=== PATIENT | female | born 1970 | race Caucasian/White ===

== ENCOUNTER → 2017-06-29 | Outpatient (CLI) | payer BC ==
[2017-06-29 11:27] LABS: BUN 12 mg/dL (7-18)
[2017-06-29 11:29] LABS: GFR (ESTIMATED) 78 ML/MIN (59-)
[2017-06-29 12:06] LABS: HEMOGLOBIN 14.5 g/dL (12.2-16.2); LYMPH # 2.1 K/mm3 (0.7-4.5); LYMPH % 25.3 % (10-50.0)
== END ==
LOC: LAB 09:33
PROVIDERS: Internal Medicine
DX: C50.912 Malignant neoplasm of unspecified site of left female breast (principal); I89.0 Lymphedema, not elsewhere classified

== ENCOUNTER → 2017-08-13 | Outpatient (CLI) | payer BC ==
[~2017-08-13] MED LIST: ALLERGY10 MG PO; ARIMIDEX1 MG PO; ATENOLOL25 MG PO; BACTRIM DS 8001 TAB PO; BIOTIN1 TAB PO; BUSPIRONE 5MG TA5 MG PO; CALCIUM 600600 M2 PO; CEPHALEXIN500 MG PO; CYCLOBENZAPRINE10 M3 PO; FISH OIL1000 MG PO; FLEXERIL10 MG PO; HYDROCODONE1 TABLET PO; HYDROXYZINE 25M25 MG PO; LAMISIL 250MG250 MG PO; MEDROL 4MG. DOSE4 MG PO; MELOXICAM15 MG PO; NAPROSYN 500MG500 MG PO; NEURONTIN100 MG OR; PRAVASTATIN40 MG PO; PREDNISONE 10MG10 MG PO; SUMATRIPTAN SUC25 MG PO; TRAMADOL 50MG T50 M1 PO; VICODIN 5/500 T1 TAB PO; VOLTAREN75 MG PO; WOMEN'S MULTIVI1 TAB PO; XIIDRA1 EACH OP
[2017-08-13 11:26] LABS: HEMOGLOBIN 13.7 g/dL (12.2-16.2); LYMPH # 1.8 K/mm3 (0.7-4.5); LYMPH % 24.2 % (10-50.0)
[2017-08-13 12:45] LABS: URINE BILIRUBIN - DIPSTICK NEGATIVE (NEG); URINE BLOOD NEGATIVE (NEG)
[2017-08-13 17:59] LABS: BUN 14 mg/dL (7-18)
[2017-08-13 18:40] LABS: GFR (ESTIMATED) 90 ML/MIN (59-)
== END ==
LOC: LAB 10:55
PROVIDERS: Obstetrics & Gynecology
DX: N95.0 Postmenopausal bleeding (principal); Z01.812 Encounter for preprocedural laboratory examination

== ENCOUNTER 2017-08-17 06:09 | Day surgery (SDC) | payer BC ==
[~2017-08-17] VITALS: Ht 165.1 cm; Wt 132.9 kg
--- NOTE | 2017-08-17 07:46 | Operative Note ---
Procedure/Operative Record Date of Procedure: 08/17/17 Referring physician: Dr. Denise Pre-op diagnosis: Postmenopausal bleeding Post-op diagnosis: 1. Postmenopausal bleeding. 2. Endometrial polyps. Procedure performed: 1. Diagnostic hysteroscopy. 2. Endometrial polypectomy. 3. Fractional dilatation and curettage. Surgeon: Anand Lowery Anesthesia: SHADE Houser Indications: Postmenopausal bleeding Description of procedure: After the patient was prepped and draped in usual fashion and general anesthesia was administered, examination under anesthesia revealed a symmetrically enlarged uterus, with no palpable adnexal masses. A weighted speculum was placed within the posterior fourchette of the vagina, and the anterior lip of the cervix was grasped with a single-tooth tenaculum. There was only moderate descensus. A sharp curette was introduced into the endocervix, with retrieval of a small amount of mucoid tissue. The uterus was then sounded in an anteverted direction to 9 cm, and easily dilated to number 20 Hegar dilators. Using 1.5 percent glycine as a distending medium, and operating hysteroscope was introduced into the endometrial cavity. There were multiple benign-appearing polyps noted. Polyp forceps were used to retrieve the polyps, and no further pathology was noted. A sharp curette was introduced into the endometrial cavity, with retrieval of a moderate amount of lush endometrium. Reintroduction of the hysteroscope revealed no further pathology. The instruments were removed. Sponge and needle counts correct. Estimated blood loss was 100 mL. The patient tolerated the procedure well, and was taken to PACU in excellent condition. She will be discharged today , if her vital signs are stable. EBL (ml): 100 Complications: None Specimens: 1. Endocervical curettings. 2. Endometrial polyps. 3. Endometrial curettings. at [id number]
--- NOTE | 2017-08-17 07:50 | Anesthesia Record ---
Anesthesia Record Part I Total IV fluids: 800 EBL (ml): 0 Urine Output: 250 B/P: 108/72 % SaO2: 88 Pulse: 99 Resps: 12 Temp: 97.5 Patient is: Awake, Stable Stable to PACU at: 0745 at 0750
--- NOTE | 2017-08-17 07:51 | Anesthesia Record ---
Anesthesia Record Part II Discharge time: 814 Destination: Same day surgery PACU nurse assessment review? Yes Patient is: Awake, Stable Anesthesia complications? No at 0751
[2017-08-17 08:44] LABS: HEMOGLOBIN 12.9 g/dL (12.2-16.2)
[2017-08-17 09:56] VITALS: BP 132/50
== END 2017-08-17 09:40 | disposition home or self-care (01) ==
LOC: SDC 06:09
PROVIDERS: Obstetrics & Gynecology
PROC: 0UDB8ZX Extraction of Endometrium, Via Natural or Artificial Opening Endoscopic, Diagnostic (ICD-10-PCS; 2017-08-17)
PROC: 0UB98ZX Excision of Uterus, Via Natural or Artificial Opening Endoscopic, Diagnostic (ICD-10-PCS; principal; 2017-08-17 07:30)
DX: N95.0 Postmenopausal bleeding (principal); N84.0 Polyp of corpus uteri

== ENCOUNTER → 2017-09-10 | Outpatient (CLI) | payer BC ==
--- NOTE | 2017-09-17 10:55 | RADIOLOGY REPORT PS360 ---
DIG MAMM-DX NIA W/AVWS W/CAD COMPARISON: 09/04/2016 INDICATION: Follow-up breast cancer ORDERING PHYSICIAN: Andrey Samano MD PATIENT AGE: 46 years TECHNIQUE: Standard images performed along with spot compression views of the left breast. FINDINGS: Postsurgical changes are present involving the left breast with some skin thickening on architectural distortion from previous surgery. There is average fibroglandular tissue. No malignant appearing mass or malignant appearing microcalcification is evident. Benign-appearing nodular densities are present in the right breast unchanged. There was some asymmetric density in the superior left breast in the region of the previous surgery which didn't appear to compress out as fibroglandular tissue. No malignant appearing mass or malignant. Microcalcification. IMPRESSION: Postsurgical changes of the left breast with benign findings on the right BI-RADS CATEGORY: 2_Benign RECOMMENDED FOLLOWUP: Annual screening mammogram along with correlation with physical exam (A letter has been sent to the patient regarding results of the study.)
== END ==
LOC: RAD 12:48
DX: Z85.3 Personal history of malignant neoplasm of breast (principal)
CPT/HCPCS: G0204

== ENCOUNTER → 2017-09-14 | Outpatient (CLI) | payer BC ==
--- NOTE | 2017-09-14 11:27 | RADIOLOGY REPORT PS360 ---
BONE DENSITOMETRY(HIP:LT SPINE HISTORY: BREAST CA ORDERING PHYSICIAN: Boni Sotelo MD PATIENT AGE: 46 years COMPARISON: None FINDINGS: The BMD measured at the left femoral neck is 0.925 g/cm squared with a T score of -0.8. This is considered normal according to the World Health Organization criteria. Fracture risk is low. Recommend follow-up exam August 2019. IMPRESSION: Normal bone density
== END ==
LOC: RAD 09:43
DX: C50.912 Malignant neoplasm of unspecified site of left female breast (principal); Z17.0 Estrogen receptor positive status [ER+]